=== PATIENT | male | born 1965 | race Caucasian/White ===

== ENCOUNTER 2016-08-20 12:19 | Emergency (ER) | payer OTHER ==
[~2016-08-20 12:19] MED LIST: /AUGM875TA; /CELE20CA; /ESOM40CA; ACET500C; ACET65TA; AMPHOTERICIN; CLAR5CHW; CLARITIN; GLUC500T3; LEVA500T; LISI10TA4; TRAM50TA2; invanz
[2016-08-20] MEDS ORDERED: METOCLOPRAMIDE INJ 10MG/2ML VIAL (J2765) As Ordered ONE (14:07)
[2016-08-20] MEDS ORDERED: KETOROLAC 30 MG/ML VIAL (J1885) As Ordered ONE (14:07)
--- NOTE | 2016-08-20 15:34 | EDDOCDS ---
Physician Documentation [facility] Name: Bolivar Collins Age: 51 yrs Sex: Male : 1965 Arrival Date: 08/20/2016 Time: 12:19 Bed I2 / M2 Private MD: Chuyita RESENDIZ Disposition: 08/20/16 15:19 Discharged to Home/Self Care. Impression: Headache. - Condition is Stable. - Discharge Instructions: Migraine Headache. - Prescriptions for Reglan 10 mg Oral Tablet - take 1 tablet by ORAL route every 6 hours take 30 minutes before meals and at bedtime; 20 tablet. - Medication Reconciliation form. - Follow up: Chuyita [facility]; When: Call to arrange an appointment; Reason: Wound/Symptom Recheck, Recheck today's complaints, Worsening of conditions, Continuance of care. - Problem is an acute exacerbation. - Symptoms have improved. Historical: - Allergies: no known allergies; - Home Meds: 1. Hyzaar Oral 1 tab once daily 2. Celebrex 200 mg Oral cap 1 cap once daily 3. Synthroid 125 mcg Oral tab 1 tab once daily 4. Zyrtec 10 mg Oral cap 10 mg daily 5. Vitamin D Oral 1,000 unit daily 6. tramadol-acetaminophen 37.5-325 mg Oral tab twice a day 7. Percocet 5-325 mg Oral tab 1 tab nightly - PMHx: Hypertension; GERD; - PSHx: Hernia repair; Left knee arthroscopy; Vasectomy; back fusion,lumbar; - Social history: Smoking status: Patient states was never smoker of tobacco. No barriers to communication noted, The patient speaks fluent Wallisian. - Family history: Not pertinent. - : The pt / caregiver states he / she is not on anticoagulants. Home medication list is obtained from the patient. - Exposure Risk Screening:: None identified. Vital Signs: 08/20 12:21 BP 152 / 95; Pulse 56; Resp 16; Temp 97.4(O); Pulse Ox 97% on R/A; Weight 131.54 kg / elp 290 lbs (R); Height 6 ft. 4 in. (193.04 cm) (R); Pain 8/10; 14:58 BP 149 / 80; Pulse 60; Resp 16; Temp 97.9(T); Pulse Ox 97% on R/A; Pain 3/10; dwg 12:21 Body Mass Index 35.30 (131.54 kg, 193.04 cm) elp MDM: 14:00 IV Saline Lock ordered. cc10 14:00 ketorolac 30 mg IVP once ordered. cc10 14:00 Metoclopramide 10 mg IV at 40 mg/hr once over 15 mins ordered. cc10 14:01 CT Head Without Contrast Ordered. EDMS 15:31 Financial registration complete. ks16 15:33 [facility] Payment Agreement was scanned into [employer] and attached to record. ks16 Administered Medications: 14:14 Drug: Metoclopramide 10 mg [metoclopramide 5 mg/mL injection solution] Route: IV; Rate: dls 40 mg/hr; Infused Over: 15 mins; Site: right antecubital; 14:58 Follow up: Response: Nausea is resolved dwg 14:15 Drug: ketorolac 30 mg [ketorolac 30 mg/mL (1 mL) injection solution (1 mL)] Route: IVP; dls Site: right antecubital; 14:58 Follow up: Response: Pain is decreased dwg Signatures: Dispatcher [employer] EDNM Omayra Cason RN RN dls Shari Miller RN RN rs3 Escobar Carrasco, PAMalcomC PA-C cc10 Bushra Perez, Reg Reg ks16 Philippe Lamb RN dwg The chart was reviewed and I authenticate all verbal orders and agree with the evaluation and treatment provided.Corrections: (The following items were deleted from the chart) 15:16 15:15 Vital Signs ordered. cc10 cc10 Attachments: 15:33 [facility] Payment Agreement ks16 MTDD
--- NOTE | 2016-08-20 15:34 | EDDOCDS ---
Nurse's Notes [facility] Name: Bolivar Collins Age: 51 yrs Sex: Male : 1965 Arrival Date: 08/20/2016 Time: 12:19 Bed I2 / M2 Private MD: Chuyita RESENDIZ Diagnosis: Headache Presentation: 08/20 12:29 Presenting complaint: Patient states: migraine headache/nausea today. the first rs3 headache started a month ago. Seeing at [facility], adjusting blood pressure medication, caffeine intake. This patient has no additional risk factors. Adult Sepsis Screening: The patient does not have new or worsening altered mentation. Patient's respiratory rate is less than 22. Systolic blood pressure is greater than 100. Patient has a qSOFA score of 0- Negative Sepsis Screen. Suicide/Homicide risk assessment- the patient denies having any suicidal and/or homicidal ideations and does not present with any other emotional, behavioral or mental health complaints. Status: Retired. Transition of care: patient was not received from another setting of care. 12:29 Acuity: REINIER Level 3 rs3 12:29 Method Of Arrival: Walkin/Carried/Asstd rs3 Triage Assessment: 12:36 Headache History: This patient has a history of headaches and the character of this rs3 headache is like all previous headaches. General: Appears in no apparent distress. Pain: Pain currently is 7 out of 10 on a pain scale. Pain began gradually Also complains of photophobia. Pt Declines HIV testing. Neurological: Reports headache. Historical: - Allergies: no known allergies; - Home Meds: 1. Hyzaar Oral 1 tab once daily 2. Celebrex 200 mg Oral cap 1 cap once daily 3. Synthroid 125 mcg Oral tab 1 tab once daily 4. Zyrtec 10 mg Oral cap 10 mg daily 5. Vitamin D Oral 1,000 unit daily 6. tramadol-acetaminophen 37.5-325 mg Oral tab twice a day 7. Percocet 5-325 mg Oral tab 1 tab nightly - PMHx: Hypertension; GERD; - PSHx: Hernia repair; Left knee arthroscopy; Vasectomy; back fusion,lumbar; - Social history: Smoking status: Patient states was never smoker of tobacco. No barriers to communication noted, The patient speaks fluent Urdu. - Family history: Not pertinent. - : The pt / caregiver states he / she is not on anticoagulants. Home medication list is obtained from the patient. - Exposure Risk Screening:: None identified. Screenin:29 Screening information is obtained from the patient. Primary language is Urdu. Fall dls risk: No risks identified. Assistance ADL's: requires no assistance with activities of daily living. Abuse/DV Screen: The patient / caregiver reports he/she is: not in a situation that causes fear, pain or injury. Nutritional screening: No deficits noted. Advance Directives: Currently, there is no health care proxy. There is no active DNR order. There is no living will. There is no Power of [employer]. Advance directive information has not previously been placed in an [facility] medical record. home support is adequate. Assessment: 15:29 General: Appears uncomfortable, well developed, well nourished, well groomed, Behavior dls is cooperative. Awake, alert, oriented. Skin warm and dry. Moves all extremities. Bilateral breath sounds clear. Respirations unlabored. Abdomen soft, non-tender. No apparent distress. The patient / caregiver is instructed regarding the plan of care and ED course. Vital Signs: 12:21 BP 152 / 95; Pulse 56; Resp 16; Temp 97.4(O); Pulse Ox 97% on R/A; Weight 131.54 kg elp (R); Height 6 ft. 4 in. (193.04 cm) (R); Pain 8/10; 14:58 BP 149 / 80; Pulse 60; Resp 16; Temp 97.9(T); Pulse Ox 97% on R/A; Pain 3/10; dwg 12:21 Body Mass Index 35.30 (131.54 kg, 193.04 cm) [facility] Vitals: 12:21 Log In Time: August 20, 2016 at 12:[address] [facility] ED Course: 12:20 Patient visited by Nupur Guzman PCA. elp 12:20 Chuyita [facility] is Private Physician. elp 12:20 Patient moved to Waiting elp 12:22 Patient visited by Nupur Guzman PCA. elp 12:22 Patient moved to Pre RCE elp 12:33 Triage Initiated rs3 13:31 Patient moved to Triage 3 ar3 13:52 [facility] cc10 13:52 Beatriz Stewart MD is Attending Physician. cc10 13:52 Patient visited by Escobar Carrasco PA-C. cc10 13:52 Patient visited by Escobar Carrasco PA-C. cc10 14:04 Patient moved to I2 / M2 jjr 14:10 Patient visited by Filomena Armas PCA. ar3 14:14 Inserted peripheral IV: 20gauge IV in right antecubital area. dwg 14:29 Patient visited by Josie Washington PCA. jlf 15:00 Patient visited by Josie Washington PCA. jlf 15:19 Boogie [facility] is Referral Physician. cc10 15:29 Accompanied by Significant Other, Patient has correct armband on for positive dls identification. Bed in low position. Call light in reach. 15:31 No procedures done that require assistance. dls 15:31 Discontinued IV lock intact, bleeding controlled, pressure dressing applied, No dls redness/swelling at site. 15:33 [facility] Payment Agreement was scanned into [employer] and attached to record. ks16 Administered Medications: 14:14 Drug: Metoclopramide 10 mg [metoclopramide 5 mg/mL injection solution] Route: IV; Rate: dls 40 mg/hr; Infused Over: 15 mins; Site: right antecubital; 14:58 Follow up: Response: Nausea is resolved dwg 14:15 Drug: ketorolac 30 mg [ketorolac 30 mg/mL (1 mL) injection solution (1 mL)] Route: IVP; dls Site: right antecubital; 14:58 Follow up: Response: Pain is decreased dwg Order Results: There are currently no results for this order. Outcome: 15:19 Discharge ordered by Provider. cc10 15:30 The following High Risk Discharge criteria are identified: None. Discharged to home dls ambulatory. Condition: improved. Discharge instructions given to patient, Instructed on discharge instructions, follow up and referral plans. medication usage, Demonstrated understanding of instructions, medications, Pt was receptive of discharge instructions/ teaching. Prescriptions given X 1. No special radiology studies were completed CT Study completed. 15:32 Discharge Assessment: Patient awake, alert and oriented x 3. No cognitive and/or dls functional deficits noted. Patient verbalized understanding of disposition instructions. patient administered narcotics - no. The following High Risk Discharge criteria are identified: None. Discharged to home ambulatory. Property :Personal belongings accompany Pt. 15:32 Patient left the ED. dls Signatures: Philippe Lamb, RN RN Omayra Berry RN RN dls Cristy Rust RN RN jjr Soosairaj, Rosemary, RN RN rs3 Chanda, Filomena, PIE FILLING MIXER PIE FILLING MIXER ar3 Patchen, Nupur, PIE FILLING MIXER PIE FILLING MIXER elp Padmini, Galain, PIE FILLING MIXER PIE FILLING MIXER jlf Escobar Carrasco, PA-C PA-C cc10 Bushra Perez, Reg Reg ks16 MTDD
--- NOTE | 2016-08-21 11:23 | REP ---
CT of the brain without IV contrast: There are no comparisons. There is no hemorrhage, edema, mass effect or midline shift. Ventricles are normal size and midline. Cortical stripe is unremarkable. The visualized sinuses and mastoids are unremarkable. Impression: There is no hemorrhage, acute infarct or mass. Negative CT of the brain. Signed by Philippe Dawn MD 08/20/2016 02:48 P
--- NOTE | 2016-08-22 16:33 | EDDOCDS ---
Physician Documentation [facility] Name: Bolivar Collins Age: 51 yrs Sex: Male : 1965 Arrival Date: 08/20/2016 Time: 12:19 Bed I2 / M2 Private MD: Chuyita RESENDIZ Disposition: 08/20/16 15:19 Discharged to Home/Self Care. Impression: Headache. - Condition is Stable. - Discharge Instructions: Migraine Headache. - Prescriptions for Reglan 10 mg Oral Tablet - take 1 tablet by ORAL route every 6 hours take 30 minutes before meals and at bedtime; 20 tablet. - Medication Reconciliation form. - Follow up: Chuyita [facility] [place]; When: Call to arrange an appointment; Reason: Wound/Symptom Recheck, Recheck today's complaints, Worsening of conditions, Continuance of care. - Problem is an acute exacerbation. - Symptoms have improved. Historical: - Allergies: no known allergies; - Home Meds: 1. Hyzaar Oral 1 tab once daily 2. Celebrex 200 mg Oral cap 1 cap once daily 3. Synthroid 125 mcg Oral tab 1 tab once daily 4. Zyrtec 10 mg Oral cap 10 mg daily 5. Vitamin D Oral 1,000 unit daily 6. tramadol-acetaminophen 37.5-325 mg Oral tab twice a day 7. Percocet 5-325 mg Oral tab 1 tab nightly - PMHx: Hypertension; GERD; - PSHx: Hernia repair; Left knee arthroscopy; Vasectomy; back fusion,lumbar; - Social history: Smoking status: Patient states was never smoker of tobacco. No barriers to communication noted, The patient speaks fluent Zimbabwean. - Family history: Not pertinent. - : The pt / caregiver states he / she is not on anticoagulants. Home medication list is obtained from the patient. - Exposure Risk Screening:: None identified. Vital Signs: 08/20 12:21 BP 152 / 95; Pulse 56; Resp 16; Temp 97.4(O); Pulse Ox 97% on R/A; Weight 131.54 kg / elp 290 lbs (R); Height 6 ft. 4 in. (193.04 cm) (R); Pain 8/10; 14:58 BP 149 / 80; Pulse 60; Resp 16; Temp 97.9(T); Pulse Ox 97% on R/A; Pain 3/10; dwg 12:21 Body Mass Index 35.30 (131.54 kg, 193.04 cm) elp MDM: 14:00 IV Saline Lock ordered. cc10 14:00 ketorolac 30 mg IVP once ordered. cc10 14:00 Metoclopramide 10 mg IV at 40 mg/hr once over 15 mins ordered. cc10 14:01 CT Head Without Contrast Ordered. EDMS 15:31 Financial registration complete. ks16 15:33 [facility] Payment Agreement was scanned into [employer] and attached to record. ks16 18:21 T-Sheet-- Draft Copy was scanned into [employer] and attached to record. klr Administered Medications: 14:14 Drug: Metoclopramide 10 mg [metoclopramide 5 mg/mL injection solution] Route: IV; Rate: dls 40 mg/hr; Infused Over: 15 mins; Site: right antecubital; 14:58 Follow up: Response: Nausea is resolved dwg 14:15 Drug: ketorolac 30 mg [ketorolac 30 mg/mL (1 mL) injection solution (1 mL)] Route: IVP; dls Site: right antecubital; 14:58 Follow up: Response: Pain is decreased dwg Signatures: Dispatcher [employer] EDWA Omayra Cason RN RN dls Shari Miller RN RN rs3 Escobar Carrasco PA-C PAZabrina cc10 Bushra Perez, Reg Reg ks16 Melissa Mullins Daniel RN dwg The chart was reviewed and I authenticate all verbal orders and agree with the evaluation and treatment provided.Corrections: (The following items were deleted from the chart) 15:16 15:15 Vital Signs ordered. cc10 cc10 Attachments: 15:33 [facility] Payment Agreement ks16 18:21 T-Sheet-- Draft Copy klr Chart Complete MTDD
--- NOTE | 2016-08-22 16:33 | EDDOCDS ---
Physician Documentation [facility] Name: Bolivar Collins Age: 51 yrs Sex: Male : 1965 Arrival Date: 08/20/2016 Time: 12:19 Bed I2 / M2 Private MD: Chuyita RESENDIZ Disposition: 08/20/16 15:19 Discharged to Home/Self Care. Impression: Headache. - Condition is Stable. - Discharge Instructions: Migraine Headache. - Prescriptions for Reglan 10 mg Oral Tablet - take 1 tablet by ORAL route every 6 hours take 30 minutes before meals and at bedtime; 20 tablet. - Medication Reconciliation form. - Follow up: Chuyita [facility]; When: Call to arrange an appointment; Reason: Wound/Symptom Recheck, Recheck today's complaints, Worsening of conditions, Continuance of care. - Problem is an acute exacerbation. - Symptoms have improved. Historical: - Allergies: no known allergies; - Home Meds: 1. Hyzaar Oral 1 tab once daily 2. Celebrex 200 mg Oral cap 1 cap once daily 3. Synthroid 125 mcg Oral tab 1 tab once daily 4. Zyrtec 10 mg Oral cap 10 mg daily 5. Vitamin D Oral 1,000 unit daily 6. tramadol-acetaminophen 37.5-325 mg Oral tab twice a day 7. Percocet 5-325 mg Oral tab 1 tab nightly - PMHx: Hypertension; GERD; - PSHx: Hernia repair; Left knee arthroscopy; Vasectomy; back fusion,lumbar; - Social history: Smoking status: Patient states was never smoker of tobacco. No barriers to communication noted, The patient speaks fluent Brazilian. - Family history: Not pertinent. - : The pt / caregiver states he / she is not on anticoagulants. Home medication list is obtained from the patient. - Exposure Risk Screening:: None identified. Vital Signs: 08/20 12:21 BP 152 / 95; Pulse 56; Resp 16; Temp 97.4(O); Pulse Ox 97% on R/A; Weight 131.54 kg / elp 290 lbs (R); Height 6 ft. 4 in. (193.04 cm) (R); Pain 8/10; 14:58 BP 149 / 80; Pulse 60; Resp 16; Temp 97.9(T); Pulse Ox 97% on R/A; Pain 3/10; dwg 12:21 Body Mass Index 35.30 (131.54 kg, 193.04 cm) elp MDM: 14:00 IV Saline Lock ordered. cc10 14:00 ketorolac 30 mg IVP once ordered. cc10 14:00 Metoclopramide 10 mg IV at 40 mg/hr once over 15 mins ordered. cc10 14:01 CT Head Without Contrast Ordered. EDMS 15:31 Financial registration complete. ks16 15:33 [facility] Payment Agreement was scanned into [employer] and attached to record. ks16 18:21 T-Sheet-- Draft Copy was scanned into [employer] and attached to record. klr Administered Medications: 14:14 Drug: Metoclopramide 10 mg [metoclopramide 5 mg/mL injection solution] Route: IV; Rate: dls 40 mg/hr; Infused Over: 15 mins; Site: right antecubital; 14:58 Follow up: Response: Nausea is resolved dwg 14:15 Drug: ketorolac 30 mg [ketorolac 30 mg/mL (1 mL) injection solution (1 mL)] Route: IVP; dls Site: right antecubital; 14:58 Follow up: Response: Pain is decreased dwg Signatures: Dispatcher [employer] EDLA Omayra Cason RN RN dls Shari Miller RN RN rs3 Escobar Carrasco PA-C PAZabrina cc10 Bushra Perez, Reg Reg ks16 Melissa Mullins Daniel RN dwg The chart was reviewed and I authenticate all verbal orders and agree with the evaluation and treatment provided.Corrections: (The following items were deleted from the chart) 15:16 15:15 Vital Signs ordered. cc10 cc10 Attachments: 15:33 [facility] Payment Agreement ks16 18:21 T-Sheet-- Draft Copy klr Chart Complete MTDD
--- NOTE | 2016-08-22 16:33 | EDDOCDS ---
Nurse's Notes [facility] Name: Bolivar Collins Age: 51 yrs Sex: Male : 1965 Arrival Date: 08/20/2016 Time: 12:19 Bed I2 / M2 Private MD: Chuyita RESENDIZ Diagnosis: Headache Presentation: 08/20 12:29 Presenting complaint: Patient states: migraine headache/nausea today. the first rs3 headache started a month ago. Seeing at [facility], adjusting blood pressure medication, caffeine intake. This patient has no additional risk factors. Adult Sepsis Screening: The patient does not have new or worsening altered mentation. Patient's respiratory rate is less than 22. Systolic blood pressure is greater than 100. Patient has a qSOFA score of 0- Negative Sepsis Screen. Suicide/Homicide risk assessment- the patient denies having any suicidal and/or homicidal ideations and does not present with any other emotional, behavioral or mental health complaints. Status: Retired. Transition of care: patient was not received from another setting of care. 12:29 Acuity: REINIER Level 3 rs3 12:29 Method Of Arrival: Walkin/Carried/Asstd rs3 Triage Assessment: 12:36 Headache History: This patient has a history of headaches and the character of this rs3 headache is like all previous headaches. General: Appears in no apparent distress. Pain: Pain currently is 7 out of 10 on a pain scale. Pain began gradually Also complains of photophobia. Pt Declines HIV testing. Neurological: Reports headache. Historical: - Allergies: no known allergies; - Home Meds: 1. Hyzaar Oral 1 tab once daily 2. Celebrex 200 mg Oral cap 1 cap once daily 3. Synthroid 125 mcg Oral tab 1 tab once daily 4. Zyrtec 10 mg Oral cap 10 mg daily 5. Vitamin D Oral 1,000 unit daily 6. tramadol-acetaminophen 37.5-325 mg Oral tab twice a day 7. Percocet 5-325 mg Oral tab 1 tab nightly - PMHx: Hypertension; GERD; - PSHx: Hernia repair; Left knee arthroscopy; Vasectomy; back fusion,lumbar; - Social history: Smoking status: Patient states was never smoker of tobacco. No barriers to communication noted, The patient speaks fluent Wolof. - Family history: Not pertinent. - : The pt / caregiver states he / she is not on anticoagulants. Home medication list is obtained from the patient. - Exposure Risk Screening:: None identified. Screenin:29 Screening information is obtained from the patient. Primary language is Wolof. Fall dls risk: No risks identified. Assistance ADL's: requires no assistance with activities of daily living. Abuse/DV Screen: The patient / caregiver reports he/she is: not in a situation that causes fear, pain or injury. Nutritional screening: No deficits noted. Advance Directives: Currently, there is no health care proxy. There is no active DNR order. There is no living will. There is no Power of Category Manager. Advance directive information has not previously been placed in an [facility] medical record. home support is adequate. Assessment: 15:29 General: Appears uncomfortable, well developed, well nourished, well groomed, Behavior dls is cooperative. Awake, alert, oriented. Skin warm and dry. Moves all extremities. Bilateral breath sounds clear. Respirations unlabored. Abdomen soft, non-tender. No apparent distress. The patient / caregiver is instructed regarding the plan of care and ED course. Vital Signs: 12:21 BP 152 / 95; Pulse 56; Resp 16; Temp 97.4(O); Pulse Ox 97% on R/A; Weight 131.54 kg elp (R); Height 6 ft. 4 in. (193.04 cm) (R); Pain 8/10; 14:58 BP 149 / 80; Pulse 60; Resp 16; Temp 97.9(T); Pulse Ox 97% on R/A; Pain 3/10; dwg 12:21 Body Mass Index 35.30 (131.54 kg, 193.04 cm) [facility] Vitals: 12:21 Log In Time: August 20, 2016 at 12:19. [facility] ED Course: 12:20 Patient visited by Nupur Guzman PCA. elp 12:20 Chuyita [facility] is Private Physician. elp 12:20 Patient moved to Waiting elp 12:22 Patient visited by Nupur Guzman PCA. elp 12:22 Patient moved to Pre RCE elp 12:33 Triage Initiated rs3 13:31 Patient moved to Triage 3 ar3 13:52 [facility] Carrasco [facility] cc10 13:52 Beatriz Stewart MD is Attending Physician. cc10 13:52 Patient visited by Escobar Carrasco PA-C. cc10 13:52 Patient visited by Escobar Carrasco PA-C. cc10 14:04 Patient moved to I2 / M2 jjr 14:10 Patient visited by Filomena Armas PCA. ar3 14:14 Inserted peripheral IV: 20gauge IV in right antecubital area. dwg 14:29 Patient visited by Josie Washington PCA. jlf 15:00 Patient visited by Josie Washington PCA. jlf 15:19 Boogie [facility] is Referral Physician. cc10 15:29 Accompanied by Significant Other, Patient has correct armband on for positive dls identification. Bed in low position. Call light in reach. 15:31 No procedures done that require assistance. dls 15:31 Discontinued IV lock intact, bleeding controlled, pressure dressing applied, No dls redness/swelling at site. 15:33 [facility] [place] Agreement was scanned into [employer] and attached to record. [id number] 18:21 T-Sheet-- Draft Copy was scanned into [employer] and attached to record. klr 08/21 11:52 CT Head Without Contrast Returned. EDMS Administered Medications: 08/20 14:14 Drug: Metoclopramide 10 mg [metoclopramide 5 mg/mL injection solution] Route: IV; Rate: dls 40 mg/hr; Infused Over: 15 mins; Site: right antecubital; 14:58 Follow up: Response: Nausea is resolved dwg 14:15 Drug: ketorolac 30 mg [ketorolac 30 mg/mL (1 mL) injection solution (1 mL)] Route: IVP; dls Site: right antecubital; 14:58 Follow up: Response: Pain is decreased dwg Order Results: Radiology Order: CT Head Without Contrast Test: CT Head Without Contrast REASON FOR EXAMINATION: [facility]; CT of the brain without IV contrast:; ; There are no comparisons.; ; There is no hemorrhage, edema, mass effect or midline shift. Ventricles are; normal size and midline. Cortical stripe is unremarkable. The visualized; sinuses and mastoids are unremarkable.; ; Impression:; ; There is no hemorrhage, acute infarct or mass. Negative CT of the brain.; ; ; Signed by; Philippe Dawn MD 08/20/2016 02:48 P; Outcome: 15:19 Discharge ordered by Provider. cc10 15:30 The following High Risk Discharge criteria are identified: None. Discharged to home dls ambulatory. Condition: improved. Discharge instructions given to patient, Instructed on discharge instructions, follow up and referral plans. medication usage, Demonstrated understanding of instructions, medications, Pt was receptive of discharge instructions/ teaching. Prescriptions given X 1. No special radiology studies were completed CT Study completed. 15:32 Discharge Assessment: Patient awake, alert and oriented x 3. No cognitive and/or dls functional deficits noted. Patient verbalized understanding of disposition instructions. patient administered narcotics - no. The following High Risk Discharge criteria are identified: None. Discharged to home ambulatory. Property :Personal belongings accompany Pt. 15:32 Patient left the ED. dls Signatures: Dispatcher [employer] EDMS Philippe Lamb, RN Omayra Huang RN RN Cristy Bourgeois RN RN Shari Titus RN RN rs3 Filomena Armas, NUCLEAR SECURITY OFFICER NUCLEAR SECURITY OFFICER arNupur Son, NUCLEAR SECURITY OFFICER NUCLEAR SECURITY OFFICER Josie Barroso, NUCLEAR SECURITY OFFICER NUCLEAR SECURITY OFFICER jlf Escobar Carrasco, SERJIO BASSETT cc10 Bushra Perez, Reg Reg [id number] Melissa Mullins Chart Complete MTDD
== END 2016-08-20 15:32 | disposition home or self-care (01) ==
LOC: M ED 12:19
DX: R51 Headache (principal); G89.29 Other chronic pain; I10 Essential (primary) hypertension; K21.9 Gastro-esophageal reflux disease without esophagitis; Z79.899 Other long term (current) drug therapy; Z79.891 Long term (current) use of opiate analgesic
CPT/HCPCS: 70450; 96374; 96375; 99284; J1885; J2765

== ENCOUNTER → 2016-10-05 | Outpatient (REF) | payer OTHER ==
[2016-10-05 13:37] LABS: BASO % 0.7 % (0.0-1.0); EOS # 0.1 K/mm3 (0.0-0.50); EOS % 2.1 % (0.0-3.0); LARGE UNSTAINED CELL # 0.1 K/mm3 (0.0-0.4); LARGE UNSTAINED CELL % 1.6 % (0.0-4.0); LYMPH # 1.4 K/mm3 (1.5-4.5); MEAN CORPUSCULAR HEMOGLOBIN 30.7 pg (27.0-33.0); MEAN CORPUSCULAR HGB CONC 36.1 g/dl (32.0-36.5); MEAN CORPUSCULAR VOLUME 85.1 fl (80.0-96.0); MONO # 0.3 K/mm3 (0.0-0.8); MONO % 6.7 % (0.0-5.0); NEUTROPHILS % 62.1 % (36.0-66.0); PLATELET COUNT, AUTOMATED 172 k/mm3 (150-450); RED CELL DISTRIBUTION WIDTH 13.5 % (11.5-14.5); WHITE BLOOD COUNT 4.9 K/mm3 (4.0-10.0)
[2016-10-05 14:20] LABS: ALBUMIN 4.1 GM/DL (3.2-5.2); ALBUMIN/GLOBULIN RATIO 1.14 (1.00-1.93); ALKALINE PHOSPHATASE 62 U/L (45-117); ALT/SGPT 29 U/L (12-78); ANION GAP 12 MEQ/L (8-16); AST/SGOT 36 U/L (15-37); BILIRUBIN,TOTAL 0.6 MG/DL (0.2-1.0); BLOOD UREA NITROGEN 20 MG/DL (7-18); CALCIUM LEVEL 8.7 MG/DL (8.5-10.1); CARBON DIOXIDE LEVEL 28 MEQ/L (21-32); CHLORIDE LEVEL 101 MEQ/L (98-107); CREATININE FOR GFR 0.98 MG/DL (0.70-1.30); ERYTHROCYTE SEDIMENTATION RATE 10 mm/hr (0-20); GLOMERULAR FILTRATION RATE > 60.0 (>56); GLUCOSE, FASTING 109 MG/DL (70-105); POTASSIUM SERUM 3.4 MEQ/L (3.5-5.1); SODIUM LEVEL 141 MEQ/L (136-145); TOTAL PROTEIN 7.7 GM/DL (6.4-8.2)
[2016-10-07 00:08] LABS: SJOGREN'S ANTI SS-A <0.2 AI (0.0-0.9); SJOGREN'S ANTI SS-B <0.2 AI (0.0-0.9)
== END ==
LOC: M LABNEURO 13:06
PROVIDERS: ATTEND Psychiatry & Neurology Neurology
DX: R51 Headache (principal)

== ENCOUNTER → 2021-02-21 | Outpatient (REF) | payer OTHER ==
[~2021-02-21] MED LIST changes: -/CELE20CA; -/ESOM40CA; +CELE1CAP4; +NEXI1CAP3
[2021-02-21 13:48] LABS: BASO % 0.8 % (0.0-1.0); EOS # 0.2 10^3/uL (0.0-0.5); EOS % 4.2 % (0.0-3.0); HEMATOCRIT 34.9 % (42.0-52.0); HEMOGLOBIN 11.3 g/dl (13.5-17.5); LYMPH # 1.1 10^3/uL (1.5-5.0); LYMPH % 30.6 % (24.0-44.0); MEAN CORPUSCULAR HEMOGLOBIN 27.7 pg (27.0-33.0); MEAN CORPUSCULAR HGB CONC 32.4 g/dl (32.0-36.5); MEAN CORPUSCULAR VOLUME 85.5 fl (80.0-96.0); MONO # 0.3 10^3/uL (0.0-0.8); MONO % 7.5 % (2.0-8.0); NEUTROPHILS % 56.3 % (36.0-66.0); PLATELET COUNT, AUTOMATED 206 10^3/uL (150-450); RED BLOOD COUNT 4.08 10^6/uL (4.30-6.10); WHITE BLOOD COUNT 3.6 10^3/uL (4.0-10.0)
[2021-02-21 14:15] LABS: ALBUMIN 3.8 GM/DL (3.2-5.2); ALT/SGPT 15 U/L (12-78); BILIRUBIN,TOTAL 0.4 MG/DL (0.2-1.0); BLOOD UREA NITROGEN 19 MG/DL (7-18); C REACTIVE PROTEIN QUANTITATIV 0.61 MG/DL (0.00-0.30); CALCIUM LEVEL 8.7 MG/DL (8.5-10.1); CARBON DIOXIDE LEVEL 25 MEQ/L (21-32); CHLORIDE LEVEL 107 MEQ/L (98-107); CREATININE FOR GFR 0.85 MG/DL (0.70-1.30); GLOMERULAR FILTRATION RATE > 60.0 (>56); GLUCOSE, FASTING 104 MG/DL (70-100); POTASSIUM SERUM 3.1 MEQ/L (3.5-5.1); SODIUM LEVEL 141 MEQ/L (136-145); TOTAL PROTEIN 7.4 GM/DL (6.4-8.2)
[2021-02-21 14:44] LABS: ERYTHROCYTE SEDIMENTATION RATE 23 mm/hr (0-20)
== END ==
LOC: M SHH 13:23
PROVIDERS: ATTEND Internal Medicine Infectious Disease
DX: T84.59XA Infection and inflammatory reaction due to other internal joint prosthesis, initial encounter (principal); Y83.1 Surgical operation with implant of artificial internal device as the cause of abnormal reaction of the patient, or of later complication, without mention of misadventure at the time of the procedure

== ENCOUNTER → 2021-02-28 | Outpatient (REF) | payer OTHER ==
[2021-02-28 13:25] LABS: HEMATOCRIT 33.4 % (42.0-52.0); HEMOGLOBIN 10.8 g/dl (13.5-17.5); MEAN CORPUSCULAR HEMOGLOBIN 26.9 pg (27.0-33.0); MEAN CORPUSCULAR HGB CONC 32.3 g/dl (32.0-36.5); MEAN CORPUSCULAR VOLUME 83.3 fl (80.0-96.0); PLATELET COUNT, AUTOMATED 139 10^3/uL (150-450); RED BLOOD COUNT 4.01 10^6/uL (4.30-6.10); WHITE BLOOD COUNT 3.3 10^3/uL (4.0-10.0)
[2021-02-28 13:52] LABS: ALBUMIN 3.7 GM/DL (3.2-5.2); ALT/SGPT 13 U/L (12-78); BILIRUBIN,TOTAL 0.4 MG/DL (0.2-1.0); BLOOD UREA NITROGEN 19 MG/DL (7-18); C REACTIVE PROTEIN QUANTITATIV 0.35 MG/DL (0.00-0.30); CALCIUM LEVEL 8.4 MG/DL (8.5-10.1); CARBON DIOXIDE LEVEL 27 MEQ/L (21-32); CHLORIDE LEVEL 107 MEQ/L (98-107); CREATININE FOR GFR 0.88 MG/DL (0.70-1.30); ERYTHROCYTE SEDIMENTATION RATE 12 mm/hr (0-20); GLOMERULAR FILTRATION RATE > 60.0 (>56); GLUCOSE, FASTING 119 MG/DL (70-100); POTASSIUM SERUM 3.2 MEQ/L (3.5-5.1); SODIUM LEVEL 141 MEQ/L (136-145); TOTAL PROTEIN 7.2 GM/DL (6.4-8.2)
== END ==
LOC: M SHH 12:39
PROVIDERS: ATTEND Internal Medicine Infectious Disease
DX: T84.59XA Infection and inflammatory reaction due to other internal joint prosthesis, initial encounter (principal); Y83.1 Surgical operation with implant of artificial internal device as the cause of abnormal reaction of the patient, or of later complication, without mention of misadventure at the time of the procedure

== ENCOUNTER → 2021-03-14 | Outpatient (REF) | payer OTHER ==
[2021-03-14 12:18] LABS: BASO % 0.6 % (0.0-1.0); EOS # 0.1 10^3/uL (0.0-0.5); EOS % 2.1 % (0.0-3.0); HEMATOCRIT 34.3 % (42.0-52.0); HEMOGLOBIN 11.2 g/dl (13.5-17.5); LYMPH # 0.9 10^3/uL (1.5-5.0); LYMPH % 27.7 % (24.0-44.0); MEAN CORPUSCULAR HGB CONC 32.7 g/dl (32.0-36.5); MEAN CORPUSCULAR VOLUME 79.6 fl (80.0-96.0); MONO # 0.4 10^3/uL (0.0-0.8); MONO % 11.6 % (2.0-8.0); NEUTROPHILS # 1.9 10^3/uL (1.5-8.5); NEUTROPHILS % 57.7 % (36.0-66.0); PLATELET COUNT, AUTOMATED 162 10^3/uL (150-450); RED BLOOD COUNT 4.31 10^6/uL (4.30-6.10); WHITE BLOOD COUNT 3.3 10^3/uL (4.0-10.0)
[2021-03-14 12:42] LABS: ERYTHROCYTE SEDIMENTATION RATE 10 mm/hr (0-20)
[2021-03-14 12:48] LABS: ALBUMIN 3.7 GM/DL (3.2-5.2); ALT/SGPT 18 U/L (12-78); BILIRUBIN,TOTAL 0.5 MG/DL (0.2-1.0); BLOOD UREA NITROGEN 16 MG/DL (7-18); C REACTIVE PROTEIN QUANTITATIV 0.48 MG/DL (0.00-0.30); CALCIUM LEVEL 8.7 MG/DL (8.5-10.1); CARBON DIOXIDE LEVEL 29 MEQ/L (21-32); CHLORIDE LEVEL 107 MEQ/L (98-107); CREATININE FOR GFR 0.92 MG/DL (0.70-1.30); GLOMERULAR FILTRATION RATE > 60.0 (>56); GLUCOSE, FASTING 108 MG/DL (70-100); POTASSIUM SERUM 3.3 MEQ/L (3.5-5.1); SODIUM LEVEL 141 MEQ/L (136-145); TOTAL PROTEIN 7.4 GM/DL (6.4-8.2)
== END ==
LOC: M SHH 11:46
PROVIDERS: ATTEND Internal Medicine Infectious Disease
DX: T84.59XA Infection and inflammatory reaction due to other internal joint prosthesis, initial encounter (principal); Y83.1 Surgical operation with implant of artificial internal device as the cause of abnormal reaction of the patient, or of later complication, without mention of misadventure at the time of the procedure

== ENCOUNTER → 2021-03-22 | Outpatient (REF) | payer OTHER ==
[2021-03-22 17:50] LABS: ALBUMIN 3.6 GM/DL (3.2-5.2); ALT/SGPT 81 U/L (12-78); BILIRUBIN,TOTAL 0.4 MG/DL (0.2-1.0); BLOOD UREA NITROGEN 15 MG/DL (7-18); C REACTIVE PROTEIN QUANTITATIV 0.76 MG/DL (0.00-0.30); CALCIUM LEVEL 8.7 MG/DL (8.5-10.1); CARBON DIOXIDE LEVEL 26 MEQ/L (21-32); CHLORIDE LEVEL 111 MEQ/L (98-107); CREATININE FOR GFR 0.91 MG/DL (0.70-1.30); GLOMERULAR FILTRATION RATE > 60.0 (>56); GLUCOSE, FASTING 95 MG/DL (70-100); POTASSIUM SERUM 3.3 MEQ/L (3.5-5.1); SODIUM LEVEL 143 MEQ/L (136-145); TOTAL PROTEIN 7.1 GM/DL (6.4-8.2)
[2021-03-22 17:57] LABS: BASO % 0.9 % (0.0-1.0); EOS # 0.2 10^3/uL (0.0-0.5); EOS % 4.8 % (0.0-3.0); HEMATOCRIT 36.3 % (42.0-52.0); HEMOGLOBIN 11.4 g/dl (13.5-17.5); LYMPH % 21.8 % (24.0-44.0); MEAN CORPUSCULAR HEMOGLOBIN 25.5 pg (27.0-33.0); MEAN CORPUSCULAR HGB CONC 31.4 g/dl (32.0-36.5); MEAN CORPUSCULAR VOLUME 81.2 fl (80.0-96.0); MONO # 0.4 10^3/uL (0.0-0.8); MONO % 9.8 % (2.0-8.0); NEUTROPHILS # 2.7 10^3/uL (1.5-8.5); NEUTROPHILS % 61.8 % (36.0-66.0); PLATELET COUNT, AUTOMATED 150 10^3/uL (150-450); RED BLOOD COUNT 4.47 10^6/uL (4.30-6.10); WHITE BLOOD COUNT 4.4 10^3/uL (4.0-10.0)
== END ==
LOC: M SHH 16:44
PROVIDERS: ATTEND Internal Medicine Infectious Disease
DX: T84.59XA Infection and inflammatory reaction due to other internal joint prosthesis, initial encounter (principal); Y83.1 Surgical operation with implant of artificial internal device as the cause of abnormal reaction of the patient, or of later complication, without mention of misadventure at the time of the procedure

== ENCOUNTER → 2021-03-28 | Outpatient (REF) | payer OTHER ==
[2021-03-28 08:58] LABS: HEMATOCRIT 35.6 % (42.0-52.0); HEMOGLOBIN 11.5 g/dl (13.5-17.5); MEAN CORPUSCULAR HEMOGLOBIN 25.4 pg (27.0-33.0); MEAN CORPUSCULAR HGB CONC 32.3 g/dl (32.0-36.5); MEAN CORPUSCULAR VOLUME 78.8 fl (80.0-96.0); PLATELET COUNT, AUTOMATED 144 10^3/uL (150-450); RED BLOOD COUNT 4.52 10^6/uL (4.30-6.10); WHITE BLOOD COUNT 3.7 10^3/uL (4.0-10.0)
[2021-03-28 09:16] LABS: ERYTHROCYTE SEDIMENTATION RATE 10 mm/hr (0-20)
[2021-03-28 09:22] LABS: ALBUMIN 3.6 GM/DL (3.2-5.2); ALT/SGPT 29 U/L (12-78); BILIRUBIN,TOTAL 0.3 MG/DL (0.2-1.0); BLOOD UREA NITROGEN 17 MG/DL (7-18); C REACTIVE PROTEIN QUANTITATIV 0.42 MG/DL (0.00-0.30); CALCIUM LEVEL 8.7 MG/DL (8.5-10.1); CARBON DIOXIDE LEVEL 27 MEQ/L (21-32); CHLORIDE LEVEL 109 MEQ/L (98-107); CREATININE FOR GFR 0.83 MG/DL (0.70-1.30); GLOMERULAR FILTRATION RATE > 60.0 (>56); GLUCOSE, FASTING 113 MG/DL (70-100); POTASSIUM SERUM 3.6 MEQ/L (3.5-5.1); SODIUM LEVEL 140 MEQ/L (136-145); TOTAL PROTEIN 7.2 GM/DL (6.4-8.2)
== END ==
LOC: M SHH 08:00
PROVIDERS: ATTEND Internal Medicine Infectious Disease
DX: T84.59XA Infection and inflammatory reaction due to other internal joint prosthesis, initial encounter (principal); Y92.009 Unspecified place in unspecified non-institutional (private) residence as the place of occurrence of the external cause; W18.30XA Fall on same level, unspecified, initial encounter

== ENCOUNTER → 2022-01-06 | Outpatient (CLI) | payer OTHER ==
[2022-01-06 13:19] LABS: BASO # 0.1 10^3/uL (0.0-0.2); BASO % 1.1 % (0.0-1.0); EOS # 0.1 10^3/uL (0.0-0.5); EOS % 2.4 % (0.0-3.0); HEMATOCRIT 42.9 % (42.0-52.0); HEMOGLOBIN 14.4 g/dl (13.5-17.5); LYMPH # 1.3 10^3/uL (1.5-5.0); MEAN CORPUSCULAR HEMOGLOBIN 27.6 pg (27.0-33.0); MEAN CORPUSCULAR HGB CONC 33.6 g/dl (32.0-36.5); MEAN CORPUSCULAR VOLUME 82.2 fl (80.0-96.0); MONO # 0.5 10^3/uL (0.0-0.8); MONO % 11.6 % (2.0-8.0); NEUTROPHILS # 2.6 10^3/uL (1.5-8.5); NEUTROPHILS % 56.5 % (36.0-66.0); PLATELET COUNT, AUTOMATED 148 10^3/uL (150-450); RED BLOOD COUNT 5.22 10^6/uL (4.30-6.10); WHITE BLOOD COUNT 4.7 10^3/uL (4.0-10.0)
[2022-01-06 13:53] LABS: ERYTHROCYTE SEDIMENTATION RATE 4 mm/hr (0-20)
== END ==
LOC: M PLALAB 10:36
PROVIDERS: ATTEND Internal Medicine Infectious Disease
DX: T84.53XA Infection and inflammatory reaction due to internal right knee prosthesis, initial encounter (principal); Y83.1 Surgical operation with implant of artificial internal device as the cause of abnormal reaction of the patient, or of later complication, without mention of misadventure at the time of the procedure